=== PATIENT | female | born 1935 | race Caucasian/White ===

== ENCOUNTER 2017-06-10 07:10 | Inpatient (IN) | payer BC ==
[~2017-06-10] VITALS: Ht 157.5 cm; Wt 39.7 kg
--- NOTE | 2017-06-10 07:32 | PHYS DOC ---
Past Medical History Past Medical History: COPD Smoking: Cigarettes Alcohol Use: None Drug Use: None Adult General Chief Complaint Chief Complaint: WEAKNESS/GENERALIZED HPI HPI Patient is a 81 year old female presents to the emergency department by EMS. Patient comes from home stating that she was watching the basketball game last night when she fell asleep and woke up about 1 AM. She states she went to get out the chair and could not move her legs, or was unable to stand. Patient states that this morning she called EMS because she could use her legs. Review of Systems Review of Systems Constitutional: Denies fever or chills [] Eyes: Denies change in visual acuity, redness, or eye pain [] HENT: Denies nasal congestion or sore throat [] Respiratory: Denies cough or shortness of breath [] Cardiovascular: No additional information not addressed in HPI [] GI: Denies abdominal pain, nausea, vomiting, bloody stools or diarrhea [] : Denies dysuria or hematuria [] Musculoskeletal: Denies back pain. C/o inability to use legs earlier this AM Integument: Denies rash or skin lesions [] Neurologic: Denies headache, focal weakness or sensory changes [] Endocrine: Denies polyuria or polydipsia [] All other systems were reviewed and found to be within normal limits, except as documented in this note. Allergies Allergies Allergies Coded Allergies Type Severity Reaction Last Updated Verified Sulfa (Sulfonamide Antibiotics) Allergy Mild ITCHING 06/10/17 Yes Tetanus Vaccines and Toxoid Allergy Unknown 06/10/17 Yes Physical Exam Physical Exam Constitutional: Well developed, well nourished, no acute distress, non-toxic appearance. [] HENT: Normocephalic, atraumatic, bilateral external ears normal, oropharynx moist, no oral exudates, nose normal. [] Eyes: PERRLA, EOMI, conjunctiva normal, no discharge. [] Neck: Normal range of motion, no tenderness, supple, no stridor. [] Cardiovascular:Heart rate regular rhythm, no murmur [] Lungs & Thorax: Bilateral breath sounds clear to auscultation [] Skin: Warm, dry, no erythema, no rash. [] Back: No tenderness, no CVA tenderness. [] Extremities: No tenderness, no cyanosis, no clubbing, ROM intact, no edema. Patient with good sensation to bilateral legs, patient was able to move both legs without difficulty to perform the stroke scale Neurologic: Alert and oriented X 3, normal motor function, normal sensory function, no focal deficits noted. [] Psychologic: Affect normal, judgement normal, mood normal. [] Stroke scale 0 Current Patient Data Vital Signs Vital Signs Date Time Temp Pulse Resp B/P (MAP) Pulse Ox O2 Delivery O2 Flow Rate FiO2 06/10/17 08:30 84 18 98 06/10/17 07:15 98.3 195/93 (127) 98.0 98.3 Lab Values Laboratory Tests Test 06/10/17 07:30 06/10/17 08:40 White Blood Count 8.2 x10^3/uL (4.0-11.0) Red Blood Count 4.83 x10^6/uL (3.50-5.40) Hemoglobin 14.9 g/dL (12.0-15.5) Hematocrit 45.1 % (36.0-47.0) Mean Corpuscular Volume 94 fL (79-100) Mean Corpuscular Hemoglobin 31 pg (25-35) Mean Corpuscular Hemoglobin Concent 33 g/dL (31-37) Red Cell Distribution Width 13.5 % (11.5-14.5) Platelet Count 250 x10^3/uL (140-400) Neutrophils (%) (Auto) 65 % (31-73) Lymphocytes (%) (Auto) 23 % (24-48) L Monocytes (%) (Auto) 8 % (0-9) Eosinophils (%) (Auto) 3 % (0-3) Basophils (%) (Auto) 1 % (0-3) Neutrophils # (Auto) 5.4 x10^3uL (1.8-7.7) Lymphocytes # (Auto) 1.9 x10^3/uL (1.0-4.8) Monocytes # (Auto) 0.7 x10^3/uL (0.0-1.1) Eosinophils # (Auto) 0.3 x10^3/uL (0.0-0.7) Basophils # (Auto) 0.0 x10^3/uL (0.0-0.2) Sodium Level 139 mmol/L (136-145) Potassium Level 4.0 mmol/L (3.5-5.1) Chloride Level 101 mmol/L (98-107) Carbon Dioxide Level 30 mmol/L (21-32) Anion Gap 8 (6-14) Blood Urea Nitrogen 21 mg/dL (7-20) H Creatinine 0.8 mg/dL (0.6-1.0) Estimated GFR (Cockcroft-Gault) 69.0 BUN/Creatinine Ratio 26 (6-20) H Glucose Level 105 mg/dL (70-99) H Calcium Level 9.7 mg/dL (8.5-10.1) Total Bilirubin 0.4 mg/dL (0.2-1.0) Aspartate Amino Transferase (AST) 31 U/L (15-37) Alanine Aminotransferase (ALT) 25 U/L (14-59) Alkaline Phosphatase 86 U/L (46-116) Creatine Kinase 150 U/L (26-192) Creatine Kinase MB (Mass) 3.3 ng/mL (0.0-3.6) Creatine Kinase MB Relative Index 2.2 % (0-4) Troponin I Quantitative < 0.017 ng/mL (0.000-0.055) Total Protein 6.9 g/dL (6.4-8.2) Albumin 3.6 g/dL (3.4-5.0) Albumin/Globulin Ratio 1.1 (1.0-1.7) Urine Collection Type Unknown Urine Color Yellow Urine Clarity Clear Urine pH 6.5 Urine Specific [place] 1.015 Urine Protein Negative mg/dL (NEG-TRACE) Urine Glucose (UA) Negative mg/dL (NEG) Urine Ketones (Stick) Negative mg/dL (NEG) Urine Blood Negative (NEG) Urine Nitrite Positive (NEG) Urine Bilirubin Negative (NEG) Urine Urobilinogen Dipstick 0.2 mg/dL (0.2 mg/dL) Urine Leukocyte Esterase Moderate (NEG) Urine RBC 0 /HPF (0-2) Urine WBC >40 /HPF (0-4) Urine Squamous Epithelial Cells Few /LPF Urine Bacteria Many /HPF (0-FEW) Laboratory Tests 06/10/17 07:30 Laboratory Tests 06/10/17 07:30 EKG EKG EKG completed at 0730 with HR [address] Cesar Juarez[] Radiology/Procedures Radiology/Procedures [] Course & Med Decision Making Course & Med Decision Making Pertinent Labs and Imaging studies reviewed. (See chart for details) 0840 Patient was assisted to the bathroom with patient noted to lean to the right. Patient states while walking that her right leg is not working right. 0936 Spoke with Alber in regards to admission for this patient. She agrees with admission and has requested consult with neurology. Family is aware of admission. [] Dragon Disclaimer Dragon Disclaimer This electronic medical record was generated, in whole or in part, using a voice recognition dictation system. Departure Departure Impression: Primary Impression: Right leg weakness Disposition: ADMITTED INPATIENT Admitting Physician: Ryanne Campo DEANNA M APRN Jun 10, 2017 07:32
[2017-06-10 07:49] LABS: BASO % 1 % (0-3); EOS % 3 % (0-3); HEMATOCRIT 45.1 % (36.0-47.0); HEMOGLOBIN 14.9 g/dL (12.0-15.5); LYMPH # 1.9 x10^3/uL (1.0-4.8); LYMPH % 23 % (24-48); MEAN CORPUSCULAR HEMOGLOBIN 31 pg (25-35); MEAN CORPUSCULAR HGB CONC 33 g/dL (31-37); MEAN CORPUSCULAR VOLUME 94 fL (79-100); MONO % 8 % (0-9); NEUT % 65 % (31-73); PLATELET COUNT 250 x10^3/uL (140-400); RED BLOOD COUNT 4.83 x10^6/uL (3.50-5.40); RED CELL DISTRIBUTION WIDTH 13.5 % (11.5-14.5); WHITE BLOOD COUNT 8.2 x10^3/uL (4.0-11.0)
[2017-06-10 07:52] LABS: CALCIUM 9.7 mg/dL (8.5-10.1); CREATININE 0.8 mg/dL (0.6-1.0)
[2017-06-10 07:58] LABS: ALBUMIN 3.6 g/dL (3.4-5.0); ALBUMIN/GLOBULIN RATIO 1.1 (1.0-1.7); TOTAL BILIRUBIN 0.4 mg/dL (0.2-1.0); TOTAL PROTEIN 6.9 g/dL (6.4-8.2)
[2017-06-10 08:06] LABS: CKMB MASS 3.3 ng/mL (0.0-3.6)
--- NOTE | 2017-06-10 08:23 | RAD ---
CT of the head without contrast, 06/10/2017: History: Unable to walk There is moderate cerebral atrophy. There are moderate patchy lucencies in the deep white matter bilaterally compatible with chronic ischemic change. The ventricles are within normal limits in size. There is no shift of the midline structures. There is no evidence of acute intracranial hemorrhage or mass effect. The left maxillary sinus is opacified, presumably on an inflammatory basis. IMPRESSION: 1. Moderate cerebral atrophy. 2. Moderate bilateral deep white matter lucencies compatible with chronic ischemic change. 3. No acute intracranial abnormality is detected. MR scanning would be a more sensitive method of evaluation, if clinically indicated. PQRS Compliance Statement: One or more of the following individualized dose reduction techniques were utilized for this examination: 1. Automated exposure control 2. Adjustment of the mA and/or kV according to patient size 3. Use of iterative reconstruction technique
--- NOTE | 2017-06-10 08:45 | EKG ---
[facility] [address] [place] [address] Test Date: 2017-06-10 Test Time: 07:30:28 Pat Name: DARSHANA BILL Department: Room: Gender: F Drill Operator: : [id number] Requested By: RAQUEL XIE Order Number: [id number] Reading MD: Royal Wesley Measurements Intervals [place] Rate: 79 P: 95 [place]: 168 QRS: 42 QRSD: 76 T: 54 QT: 374 QTc: 430 Interpretive Statements SINUS RHYTHM LEFT ATRIAL ABNORMALITY NONSPECIFIC ST-T WAVE CHANGES. ABNORMAL ECG RI6.01 No previous ECG available for comparison Electronically Signed On 06-10-2017 16:05:44 RESIDENT CARE DIRECTOR by Royal Wesley
[2017-06-10 08:55] LABS: BILIRUBIN,URINE NEGATIVE (NEG); GLUCOSE,URINE NEGATIVE (NEG); NITRITE,URINE POSITIVE (NEG); PH,URINE 6.5; PROTEIN,URINE NEGATIVE (NEG-TRACE); UROBILINOGEN,URINE 0.2 mg/dL (0.2 mg/dL)
[2017-06-10 09:06] LABS: BACTERIA,URINE MANY /HPF (0-FEW); RBC,URINE 0 /HPF (0-2); SQUAMOUS EPITHELIAL CELL,UR FEW /LPF; WBC,URINE >40 /HPF (0-4)
--- NOTE | 2017-06-10 11:04 | RAD ---
MRI Brain without contrast History: Right leg weakness, unsteady gait, leaning to the left while walking Technique: Multiplanar, multisequential noncontrast MR imaging was performed of the brain. Contrast: None Comparison: None Findings: There is no evidence of recent infarct or cytotoxic edema. There is [id number] supratentorial atrophy greater of the parietal lobes. Ventricular size is within normal limits.There is no significant midline shift, intra-axial mass effect, or focal abnormal extra-axial fluid collection. There are multiple foci of T2 and FLAIR hyperintense signal abnormality of the supratentorial white matter in a bilateral distribution greatest of the frontal parietal lobes and periatrial white matter. 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 There is mild T2 and FLAIR hyperintense signal abnormality of the octavio. There is preservation of the major intracranial flow-voids at the skull base. There is very minimal patchy fluid of the right mastoid air cells.The cerebellar tonsils are normal in location. There is no significant abnormality of the pineal gland or pituitary gland. There is complete opacification of the left maxillary sinus with somewhat heterogeneous signal features. There is patchy mild ethmoid air cell mucosal thickening. There has been lens surgery bilaterally. There is preserved marrow signal of the clivus. Impression: 1. There is no evidence of recent infarct or intracranial mass effect. Overall moderate T2 and FLAIR hyperintense abnormality of the supratentorial white matter and minimally of the octavio is nonspecific although most commonly due to chronic microvascular ischemic disease in a patient this age. 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 2. There is complete opacification of the left maxillary sinus, heterogeneous signal features which may be due to inspissated debris/mucus. 3. There is supratentorial atrophy greater of the parietal lobes. Electronically signed by: Farhan Lackey MD (06/10/2017 11:01 AM) [id number]
[2017-06-10 11:13] VITALS: BP 190/94
[2017-06-10 13:38] VITALS: BP 190/94
[2017-06-10] MEDS ORDERED: MULT-697 PO (14:01)
[2017-06-10] MEDS ORDERED: LEVO25TA4 PO (14:01)
[2017-06-10] MEDS ORDERED: LOSA100T6 PO (14:01)
[2017-06-10] MEDS ORDERED: SIMV20TA3 PO (14:01)
[2017-06-10] MEDS ORDERED: ASPI81TA50 PO (14:01)
[2017-06-10 14:36] VITALS: BP 166/88
[2017-06-10] MEDS ORDERED: cefTRIAXone IV Push 1 GM VIAL. IVP SCH (16:30)
[2017-06-10] MEDS: ASPIRIN ENTERIC COATED 81 MG TABLET.DR. PO SCH (17:00)
[2017-06-10] MEDS: LEVOTHYROXINE 25 MCG TABLET. PO SCH (17:00)
[2017-06-10] MEDS: LOSARTAN POTASSIUM 50 MG TABLET. PO SCH (17:48)
[2017-06-10 19:00] VITALS: BP 188/80
--- NOTE | 2017-06-10 19:26 | PDOC2 ---
NEUROLOGY CONSULT Date of Admission Date of Admission DATE: 06/10/17 TIME: 19:12 Reason for Consult Reason for Consult: IMPRESSION: Right UE and LE weakness x 1 day. Gait instability. 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 Sinus disease. Smoking. No acute CVA found in MRI this time. RECOMMENDATIONS/PLAN: ASA 81 mg to 325 mg daily. Continue Zocor HS. Cervical spine MRI w/wo contrast. Carotid A US + Doppler. Treat medical diseases. Smoking cessation. OT/PT. Discussed ion detail with her sones at bedside. HISTORY OF THE PRESENT ILLNESS: 89-y-old female patient with above medical diseases has symptoms of right side arm and leg weakness found about 1:00 am after awake from sleep in sofa after watching TV. She felt right side heaviness and weakness but did not search medical attention. She then went to bed but her symptoms persistent next morning and she had difficulties walking on 06/10/17, so she was brought to the ER of [facility] for further evaluation. Her weakness was improved since got here, but she still felt heaviness in right side LE > UE. Brain MRI was performed but no acute CVA found. PAST MEDICAL HISTORY: Please see above. PAST SURGERY HISTORY: No major surgery recently. ALLERGY: Reviewed. MEDICATIONS: Refer to [facility] FAMILY HISTORY: Non contributory. SOCIAL HISTORY: Lives at home. Denies drinking and illicit drug use. She has longstanding history of smokes cigarettes for many years. REVIEW OF SYSTEMS: Constitutional: Mild malnutrition. Head: No recent traumatic brain or head injury. Skin: No edema, or rash. Ear: No infection. Eyes: No vision loss or color blindness. Nose: No bleeding or purulent discharges. Hearing: Mild hearing decrease. Neck: No injury. Breast: No history of cancer, masses,or discharges. Cardiac: No OK, arrhythmia. Pulmonary: COPD. GI: No GI ulcer, GI bleeding. Urinary/genital: UTI. Endocrinologic: No cousin face, craniofacial dysmorphism, polydactyly, goiter. Skeletomuscular: No muscular atrophy, deformity. Neurological: see HP. Psychiatric: Denies drug use/abuse. Otherwise, not [id number] review of systems. PHYSICAL EXAMINATION: General appearance is in subacute distress. HEENT: Normocephalic and nontraumatic. Eyes, nose, ears, and throat are unremarkable. Neck is supple. No lymphadenopathy. No crepitus. Cardiovascular: S1, S2, regular rate and rhythm. Pulmonary: Clear to auscultation bilaterally. Abdomen: Bowel sounds are positive. Abdomen is soft, nontender, and nondistended. Extremities: No rash, lesions, or edema. No restriction of range of motion NEUROLOGICAL EXAMINATION: Alert Oriented to time, place and person. PERRL. EOMI. CN: no focal findings. Muscle tone: within normal. Muscle strength: 5, right LE 4+ DTR: 2 Plantar reflex: Flexor response bilaterally Gait: She can walk with a walker, but she walks independently at home. Sensory exam: no abnormal findings. No acute cerebellar signs elicited. F-T-N test fine. Current Medications Current Medications Current Medications Aspirin (Ecotrin) 81 mg DAILY08 PO ; Start 06/10/17 at 17:00 Levothyroxine Sodium (Synthroid) 25 mcg DAILY07 PO ; Start 06/10/17 at 17:00 Simvastatin (Zocor) 20 mg QHS PO ; Start 06/10/17 at 21:00 Losartan Potassium (Cozaar) 100 mg DAILY PO Last administered on 06/10/17 17: 48; Start 06/10/17 at 17:00 Ceftriaxone Sodium 1 gm/ Dextrose 50 ml @ 100 mls/hr Q24H IV ; Start 06/10/17 at 16:15; Status UNV Ceftriaxone Sodium (Rocephin) 1 gm Q24H IVP Last administered on 06/10/17 17: 47; Start 06/10/17 at 16:30 Active Scripts Active Reported Centrum Adults Tablet (Multivitamin/Iron/Folic Acid) 1 Each Tablet 1 Each PO Aspir-Low (Aspirin) 81 Mg Tablet.dr 1 Tab PO DAILY Levothyroxine Sodium 25 Mcg Tablet 1 Tab PO DAILY Losartan Potassium 100 Mg Tablet 100 Mg PO DAILY Simvastatin 20 Mg Tablet 20 Mg PO DAILY Allergies Allergies: Coded Allergies: Sulfa (Sulfonamide Antibiotics) (Verified Allergy, Mild, ITCHING, 06/10/17 ) Tetanus Vaccines and Toxoid (Verified Allergy, Unknown, 06/10/17) Vitals VITALS Vital Signs Date Time Temp Pulse Resp B/P (MAP) Pulse Ox O2 Delivery O2 Flow Rate FiO2 06/10/17 17:48 88 166/88 06/10/17 14:36 98.0 16 92 Room Air 98.0 06/10/17 13:38 98.0 Labs Labs Laboratory Tests Test 06/10/17 07:30 06/10/17 08:40 White Blood Count 8.2 x10^3/uL (4.0-11.0) Red Blood Count 4.83 x10^6/uL (3.50-5.40) Hemoglobin 14.9 g/dL (12.0-15.5) Hematocrit 45.1 % (36.0-47.0) Mean Corpuscular Volume 94 fL (79-100) Mean Corpuscular Hemoglobin 31 pg (25-35) Mean Corpuscular Hemoglobin Concent 33 g/dL (31-37) Red Cell Distribution Width 13.5 % (11.5-14.5) Platelet Count 250 x10^3/uL (140-400) Neutrophils (%) (Auto) 65 % (31-73) Lymphocytes (%) (Auto) 23 % (24-48) Monocytes (%) (Auto) 8 % (0-9) Eosinophils (%) (Auto) 3 % (0-3) Basophils (%) (Auto) 1 % (0-3) Neutrophils # (Auto) 5.4 x10^3uL (1.8-7.7) Lymphocytes # (Auto) 1.9 x10^3/uL (1.0-4.8) Monocytes # (Auto) 0.7 x10^3/uL (0.0-1.1) Eosinophils # (Auto) 0.3 x10^3/uL (0.0-0.7) Basophils # (Auto) 0.0 x10^3/uL (0.0-0.2) Sodium Level 139 mmol/L (136-145) Potassium Level 4.0 mmol/L (3.5-5.1) Chloride Level 101 mmol/L (98-107) Carbon Dioxide Level 30 mmol/L (21-32) Anion Gap 8 (6-14) Blood Urea Nitrogen 21 mg/dL (7-20) Creatinine 0.8 mg/dL (0.6-1.0) Estimated GFR (Cockcroft-Gault) 69.0 BUN/Creatinine Ratio 26 (6-20) Glucose Level 105 mg/dL (70-99) Calcium Level 9.7 mg/dL (8.5-10.1) Total Bilirubin 0.4 mg/dL (0.2-1.0) Aspartate Amino Transf (AST/SGOT) 31 U/L (15-37) Alanine Aminotransferase (ALT/SGPT) 25 U/L (14-59) Alkaline Phosphatase 86 U/L (46-116) Creatine Kinase 150 U/L (26-192) Creatine Kinase MB (Mass) 3.3 ng/mL (0.0-3.6) Creatine Kinase MB Relative Index 2.2 % (0-4) Troponin I Quantitative < 0.017 ng/mL (0.000-0.055) Total Protein 6.9 g/dL (6.4-8.2) Albumin 3.6 g/dL (3.4-5.0) Albumin/Globulin Ratio 1.1 (1.0-1.7) Urine Collection Type Unknown Urine Color Yellow Urine Clarity Clear Urine pH 6.5 Urine Specific [place] 1.015 Urine Protein Negative mg/dL (NEG-TRACE) Urine Glucose (UA) Negative mg/dL (NEG) Urine Ketones (Stick) Negative mg/dL (NEG) Urine Blood Negative (NEG) Urine Nitrite Positive (NEG) Urine Bilirubin Negative (NEG) Urine Urobilinogen Dipstick 0.2 mg/dL (0.2 mg/dL) Urine Leukocyte Esterase Moderate (NEG) Urine RBC 0 /HPF (0-2) Urine WBC >40 /HPF (0-4) Urine Squamous Epithelial Cells Few /LPF Urine Bacteria Many /HPF (0-FEW) Laboratory Tests Test 06/10/17 07:30 06/10/17 08:40 White Blood Count 8.2 x10^3/uL (4.0-11.0) Red Blood Count 4.83 x10^6/uL (3.50-5.40) Hemoglobin 14.9 g/dL (12.0-15.5) Hematocrit 45.1 % (36.0-47.0) Mean Corpuscular Volume 94 fL (79-100) Mean Corpuscular Hemoglobin 31 pg (25-35) Mean Corpuscular Hemoglobin Concent 33 g/dL (31-37) Red Cell Distribution Width 13.5 % (11.5-14.5) Platelet Count 250 x10^3/uL (140-400) Neutrophils (%) (Auto) 65 % (31-73) Lymphocytes (%) (Auto) 23 % (24-48) Monocytes (%) (Auto) 8 % (0-9) Eosinophils (%) (Auto) 3 % (0-3) Basophils (%) (Auto) 1 % (0-3) Neutrophils # (Auto) 5.4 x10^3uL (1.8-7.7) Lymphocytes # (Auto) 1.9 x10^3/uL (1.0-4.8) Monocytes # (Auto) 0.7 x10^3/uL (0.0-1.1) Eosinophils # (Auto) 0.3 x10^3/uL (0.0-0.7) Basophils # (Auto) 0.0 x10^3/uL (0.0-0.2) Sodium Level 139 mmol/L (136-145) Potassium Level 4.0 mmol/L (3.5-5.1) Chloride Level 101 mmol/L (98-107) Carbon Dioxide Level 30 mmol/L (21-32) Anion Gap 8 (6-14) Blood Urea Nitrogen 21 mg/dL (7-20) Creatinine 0.8 mg/dL (0.6-1.0) Estimated GFR (Cockcroft-Gault) 69.0 BUN/Creatinine Ratio 26 (6-20) Glucose Level 105 mg/dL (70-99) Calcium Level 9.7 mg/dL (8.5-10.1) Total Bilirubin 0.4 mg/dL (0.2-1.0) Aspartate Amino Transf (AST/SGOT) 31 U/L (15-37) Alanine Aminotransferase (ALT/SGPT) 25 U/L (14-59) Alkaline Phosphatase 86 U/L (46-116) Creatine Kinase 150 U/L (26-192) Creatine Kinase MB (Mass) 3.3 ng/mL (0.0-3.6) Creatine Kinase MB Relative Index 2.2 % (0-4) Troponin I Quantitative < 0.017 ng/mL (0.000-0.055) Total Protein 6.9 g/dL (6.4-8.2) Albumin 3.6 g/dL (3.4-5.0) Albumin/Globulin Ratio 1.1 (1.0-1.7) Urine Collection Type Unknown Urine Color Yellow Urine Clarity Clear Urine pH 6.5 Urine Specific [place] 1.015 Urine Protein Negative mg/dL (NEG-TRACE) Urine Glucose (UA) Negative mg/dL (NEG) Urine Ketones (Stick) Negative mg/dL (NEG) Urine Blood Negative (NEG) Urine Nitrite Positive (NEG) Urine Bilirubin Negative (NEG) Urine Urobilinogen Dipstick 0.2 mg/dL (0.2 mg/dL) Urine Leukocyte Esterase Moderate (NEG) Urine RBC 0 /HPF (0-2) Urine WBC >40 /HPF (0-4) Urine Squamous Epithelial Cells Few /LPF Urine Bacteria Many /HPF (0-FEW) MARIAM MONTENEGRO MD Jun 10, 2017 19:26
[2017-06-10] MEDS ORDERED: SIMVASTATIN 20 MG TABLET PO SCH (21:00)
[2017-06-10 22:34] VITALS: BP 178/108
[2017-06-10] MEDS ORDERED: ALBUTEROL SULFATE 2.5 MG/3 ML NEBU. NEB PRN (22:45)
[2017-06-11 02:39] VITALS: BP 131/59
[2017-06-11 05:37] LABS: BASO % 1 % (0-3); EOS % 3 % (0-3); HEMATOCRIT 42.4 % (36.0-47.0); HEMOGLOBIN 14.2 g/dL (12.0-15.5); LYMPH # 1.7 x10^3/uL (1.0-4.8); LYMPH % 29 % (24-48); MEAN CORPUSCULAR HEMOGLOBIN 31 pg (25-35); MEAN CORPUSCULAR HGB CONC 34 g/dL (31-37); MEAN CORPUSCULAR VOLUME 92 fL (79-100); MONO % 12 % (0-9); NEUT % 56 % (31-73); PLATELET COUNT 225 x10^3/uL (140-400); RED CELL DISTRIBUTION WIDTH 13.5 % (11.5-14.5); WHITE BLOOD COUNT 5.9 x10^3/uL (4.0-11.0)
[2017-06-11 05:55] LABS: CALCIUM 9.2 mg/dL (8.5-10.1); CREATININE 0.6 mg/dL (0.6-1.0); GFR 96.2; POTASSIUM 3.5 mmol/L (3.5-5.1)
[2017-06-11 07:36] VITALS: BP 158/71
--- NOTE | 2017-06-11 08:17 | RAD ---
Carotid ultrasound, 06/10/2017: History: Right-sided weakness Duplex evaluation of the carotid arteries in the neck was performed including grayscale, color-flow and spectral Doppler analysis. There are mild to moderate scattered partially calcified atherosclerotic plaques in the common carotid arteries and at the carotid bifurcations. The peak systolic velocity in the right internal carotid artery is 69 cm per sec with an end-diastolic velocity of 23 cm/s. The peak systolic velocity in the left internal carotid artery is 95 cm per sec with an end-diastolic velocity of 18 cm/s. The Doppler findings suggest narrowing in the 0-50% diameter range. Antegrade flow is present in both vertebral arteries in the neck. IMPRESSION: Mild to moderate scattered atherosclerotic plaquing at both carotid bifurcations with underlying luminal narrowing in the 0-50% diameter range bilaterally. Note: Stenosis calculations for CTA, MRA and conventional angiography are based upon determination of the distal ICA diameter in accordance with the NASCET methodology. Stenosis calculations for Doppler studies are derived from validated velocity criteria which are known to correlate with NASCET methodology of determining stenosis.
--- NOTE | 2017-06-11 09:00 | PDOC ---
PROGRESS NOTES Subjective Subjective Patient states she feels fine, wants to go home. Objective Objective Vital Signs Date Time Temp Pulse Resp B/P (MAP) Pulse Ox O2 Delivery O2 Flow Rate FiO2 06/11/17 07:36 97.5 82 16 158/71 (100) 92 Room Air 97.5 06/10/17 13:38 98.0 Intake and Output 06/11/17 07:00 Intake Total 1040 ml Balance 1040 ml Intake Oral 1040 ml # Voids 1 Physical Exam Abdomen: Normal bowel sounds, Soft, No tenderness Heart: Regular rate Extremities: No edema General: Alert, Oriented X3, No acute distress Lungs: Other (BS decreased throughout but otherwise CTA.) Neuro: Normal speech, Other (mild R LE weakness with ambulation and mild LOB when turning) Assessment Assessment Problems Medical Problems: (1) Right leg weakness Status: Acute Plan Plan of Care 1. R LE weakness - much improved per patient's report but not back to baseline yet. MRI brain showed microvascular changes but no new infarct. Suspect TIA. Carotid dopplers with mild disease. Has been taking ASA 162mg daily, will increase to 325mg. Await PT and OT evaluation. Expect she will be able to return home today with roller walker and outpatient PT (will not be homebound). MRI C spine cancelled as patient without c/o numbness or tingling in arms and no neck pain. ( Patient had claustrophobia with MRI yesterday). 2. HTN - BP has been elevated here, usually fairly well controlled with her usual meds. Continue these and recheck on OV,. 3. hyperlipidemia - continue statin. 4. hypothyroidism - stable, continue her usual dose, lab ordered prior to OV scheduled for next month. 5. possible UTI - UA with >40 WBC's, culture pending. Will discharge on Cipro. 6. Tobaccoism - significant risk factor for CVA. Discussed. Patient states she will quit smoking. Already received flu shot this fall and UTD on pneumonia shots. Comment Review of Relevant I have reviewed the following items sav (where applicable) has been applied. Labs Laboratory Tests Test 06/10/17 07:30 06/10/17 08:40 06/11/17 03:50 White Blood Count 8.2 x10^3/uL (4.0-11.0) 5.9 x10^3/uL (4.0-11.0) Red Blood Count 4.83 x10^6/uL (3.50-5.40) 4.60 x10^6/uL (3.50-5.40) Hemoglobin 14.9 g/dL (12.0-15.5) 14.2 g/dL (12.0-15.5) Hematocrit 45.1 % (36.0-47.0) 42.4 % (36.0-47.0) Mean Corpuscular Volume 94 fL (79-100) 92 fL (79-100) Mean Corpuscular Hemoglobin 31 pg (25-35) 31 pg (25-35) Mean Corpuscular Hemoglobin Concent 33 g/dL (31-37) 34 g/dL (31-37) Red Cell Distribution Width 13.5 % (11.5-14.5) 13.5 % (11.5-14.5) Platelet Count 250 x10^3/uL (140-400) 225 x10^3/uL (140-400) Neutrophils (%) (Auto) 65 % (31-73) 56 % (31-73) Lymphocytes (%) (Auto) 23 % (24-48) 29 % (24-48) Monocytes (%) (Auto) 8 % (0-9) 12 % (0-9) Eosinophils (%) (Auto) 3 % (0-3) 3 % (0-3) Basophils (%) (Auto) 1 % (0-3) 1 % (0-3) Neutrophils # (Auto) 5.4 x10^3uL (1.8-7.7) 3.3 x10^3uL (1.8-7.7) Lymphocytes # (Auto) 1.9 x10^3/uL (1.0-4.8) 1.7 x10^3/uL (1.0-4.8) Monocytes # (Auto) 0.7 x10^3/uL (0.0-1.1) 0.7 x10^3/uL (0.0-1.1) Eosinophils # (Auto) 0.3 x10^3/uL (0.0-0.7) 0.2 x10^3/uL (0.0-0.7) Basophils # (Auto) 0.0 x10^3/uL (0.0-0.2) 0.0 x10^3/uL (0.0-0.2) Sodium Level 139 mmol/L (136-145) 140 mmol/L (136-145) Potassium Level 4.0 mmol/L (3.5-5.1) 3.5 mmol/L (3.5-5.1) Chloride Level 101 mmol/L (98-107) 103 mmol/L (98-107) Carbon Dioxide Level 30 mmol/L (21-32) 30 mmol/L (21-32) Anion Gap 8 (6-14) 7 (6-14) Blood Urea Nitrogen 21 mg/dL (7-20) 15 mg/dL (7-20) Creatinine 0.8 mg/dL (0.6-1.0) 0.6 mg/dL (0.6-1.0) Estimated GFR (Cockcroft-Gault) 69.0 96.2 BUN/Creatinine Ratio 26 (6-20) Glucose Level 105 mg/dL (70-99) 95 mg/dL (70-99) Calcium Level 9.7 mg/dL (8.5-10.1) 9.2 mg/dL (8.5-10.1) Total Bilirubin 0.4 mg/dL (0.2-1.0) Aspartate Amino Transf (AST/SGOT) 31 U/L (15-37) Alanine Aminotransferase (ALT/SGPT) 25 U/L (14-59) Alkaline Phosphatase 86 U/L (46-116) Creatine Kinase 150 U/L (26-192) Creatine Kinase MB (Mass) 3.3 ng/mL (0.0-3.6) Creatine Kinase MB Relative Index 2.2 % (0-4) Troponin I Quantitative < 0.017 ng/mL (0.000-0.055) Total Protein 6.9 g/dL (6.4-8.2) Albumin 3.6 g/dL (3.4-5.0) Albumin/Globulin Ratio 1.1 (1.0-1.7) Urine Collection Type Unknown Urine Color Yellow Urine Clarity Clear Urine pH 6.5 Urine Specific [place] 1.015 Urine Protein Negative mg/dL (NEG-TRACE) Urine Glucose (UA) Negative mg/dL (NEG) Urine Ketones (Stick) Negative mg/dL (NEG) Urine Blood Negative (NEG) Urine Nitrite Positive (NEG) Urine Bilirubin Negative (NEG) Urine Urobilinogen Dipstick 0.2 mg/dL (0.2 mg/dL) Urine Leukocyte Esterase Moderate (NEG) Urine RBC 0 /HPF (0-2) Urine WBC >40 /HPF (0-4) Urine Squamous Epithelial Cells Few /LPF Urine Bacteria Many /HPF (0-FEW) Laboratory Tests Test 06/11/17 03:50 White Blood Count 5.9 x10^3/uL (4.0-11.0) Red Blood Count 4.60 x10^6/uL (3.50-5.40) Hemoglobin 14.2 g/dL (12.0-15.5) Hematocrit 42.4 % (36.0-47.0) Mean Corpuscular Volume 92 fL (79-100) Mean Corpuscular Hemoglobin 31 pg (25-35) Mean Corpuscular Hemoglobin Concent 34 g/dL (31-37) Red Cell Distribution Width 13.5 % (11.5-14.5) Platelet Count 225 x10^3/uL (140-400) Neutrophils (%) (Auto) 56 % (31-73) Lymphocytes (%) (Auto) 29 % (24-48) Monocytes (%) (Auto) 12 % (0-9) Eosinophils (%) (Auto) 3 % (0-3) Basophils (%) (Auto) 1 % (0-3) Neutrophils # (Auto) 3.3 x10^3uL (1.8-7.7) Lymphocytes # (Auto) 1.7 x10^3/uL (1.0-4.8) Monocytes # (Auto) 0.7 x10^3/uL (0.0-1.1) Eosinophils # (Auto) 0.2 x10^3/uL (0.0-0.7) Basophils # (Auto) 0.0 x10^3/uL (0.0-0.2) Sodium Level 140 mmol/L (136-145) Potassium Level 3.5 mmol/L (3.5-5.1) Chloride Level 103 mmol/L (98-107) Carbon Dioxide Level 30 mmol/L (21-32) Anion Gap 7 (6-14) Blood Urea Nitrogen 15 mg/dL (7-20) Creatinine 0.6 mg/dL (0.6-1.0) Estimated GFR (Cockcroft-Gault) 96.2 Glucose Level 95 mg/dL (70-99) Calcium Level 9.2 mg/dL (8.5-10.1) Medications Current Medications Aspirin (Ecotrin) 81 mg DAILY08 PO ; Start 06/10/17 at 17:00 Levothyroxine Sodium (Synthroid) 25 mcg DAILY07 PO ; Start 06/10/17 at 17:00 Simvastatin (Zocor) 20 mg QHS PO Last administered on 06/10/17 21:46; Start 06/10/17 at 21:00 Losartan Potassium (Cozaar) 100 mg DAILY PO Last administered on 06/10/17 17: 48; Start 06/10/17 at 17:00 Ceftriaxone Sodium 1 gm/ Dextrose 50 ml @ 100 mls/hr Q24H IV ; Start 06/10/17 at 16:15; Status UNV Ceftriaxone Sodium (Rocephin) 1 gm Q24H IVP Last administered on 06/10/17 17: 47; Start 06/10/17 at 16:30 Albuterol Sulfate (Ventolin Neb Soln) 2.5 mg PRN Q6HRS PRN NEB SHORTNESS OF BREATH Last administered on 06/10/17 23:09; Start 06/10/17 at 22:45 Active Scripts Active Reported Centrum Adults Tablet (Multivitamin/Iron/Folic Acid) 1 Each Tablet 1 Each PO Aspir-Low (Aspirin) 81 Mg Tablet. 1 Tab PO DAILY Levothyroxine Sodium 25 Mcg Tablet 1 Tab PO DAILY Losartan Potassium 100 Mg Tablet 100 Mg PO DAILY Simvastatin 20 Mg Tablet 20 Mg PO DAILY Vitals/I & O Vital Sign - Last 24 Hours 06/10/17 06/10/17 06/10/17 06/10/17 09:30 10:00 11:13 13:14 Temp 97.8 97.8 Pulse 94 85 92 Resp 18 18 18 B/P (MAP) 190/94 (126) Pulse Ox 98 97 90 O2 Delivery Room Air Room Air 06/10/17 06/10/17 06/10/17 06/10/17 13:38 14:36 17:48 19:00 Temp 97.8 98.0 97.7 97.8 98.0 97.7 Pulse 92 88 88 84 Resp 16 18 B/P (MAP) 190/94 (126) 166/88 (114) 166/88 188/80 (116) Pulse Ox 90 92 94 O2 Delivery Room Air Room Air O2 Flow Rate 98.0 06/10/17 06/10/17 06/10/17 06/11/17 20:00 22:34 23:04 02:39 Temp 98.3 98.4 98.3 98.4 Pulse 87 82 Resp 21 16 B/P (MAP) 178/108 (131) 131/59 (83) Pulse Ox 93 96 94 O2 Delivery Room Air Room Air Room Air Room Air 06/11/17 07:36 Temp 97.5 97.5 Pulse 82 Resp 16 B/P (MAP) 158/71 (100) Pulse Ox 92 O2 Delivery Room Air Intake and Output 06/10/17 06/10/17 06/11/17 15:00 23:00 07:00 Intake Total 240 ml 800 ml Balance 240 ml 800 ml MENDEL FERNANDO MD Jun 11, 2017 09:00
[2017-06-11] MEDS ORDERED: ASPI325T8 PO (09:05)
[2017-06-11] MEDS ORDERED: CIPR250T30 PO (09:05)
[2017-06-11] MEDS: ASPIRIN ENTERIC COATED 81 MG TABLET.DR. PO SCH (09:27)
[2017-06-11] MEDS: LEVOTHYROXINE 25 MCG TABLET. PO SCH (09:27)
[2017-06-11] MEDS: LOSARTAN POTASSIUM 50 MG TABLET. PO SCH (09:28)
[2017-06-11 10:34] VITALS: BP 135/71
--- NOTE | 2017-06-11 17:00 | PDOC ---
PROGRESS NOTES Assessment Assessment Right UE and LE weakness x 1 day before admission. Gait instability x 1 day before admission. 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 Sinus disease. Smoking. No evidence of acute CVA this time. RECOMMENDATIONS/PLAN: ASA 81 mg to 325 mg daily. Continue Zocor HS. Treat medical diseases. Smoking cessation. Discussed again with all detail with her sones at bedside. FU with PCP. HISTORY OF THE PRESENT ILLNESS: 89-y-old female patient with above medical diseases has symptoms of right side arm and leg weakness found about 1:00 am after awake from sleep in sofa after watching TV. She felt right side heaviness and weakness but did not search medical attention. She then went to bed but her symptoms persistent next morning and she had difficulties walking on 06/10/17, so she was brought to the ER of [facility] for further evaluation. Her weakness was improved since got here, but she still felt heaviness in right side LE > UE. Brain MRI was performed but no acute CVA found. PAST MEDICAL HISTORY: Please see above. PAST SURGERY HISTORY: No major surgery recently. ALLERGY: Reviewed. MEDICATIONS: Refer to [facility] FAMILY HISTORY: Non contributory. SOCIAL HISTORY: Lives at home. Denies drinking and illicit drug use. She has longstanding history of smokes cigarettes for many years. REVIEW OF SYSTEMS: Constitutional: Mild malnutrition. Head: No recent traumatic brain or head injury. Skin: No edema, or rash. Ear: No infection. Eyes: No vision loss or color blindness. Nose: No bleeding or purulent discharges. Hearing: Mild hearing decrease. Neck: No injury. Breast: No history of cancer, masses,or discharges. Cardiac: No IA, arrhythmia. Pulmonary: COPD. GI: No GI ulcer, GI bleeding. Urinary/genital: UTI. Endocrinologic: No cousin face, craniofacial dysmorphism, polydactyly, goiter. Skeletomuscular: No muscular atrophy, deformity. Neurological: see HP. Psychiatric: Denies drug use/abuse. Otherwise, not [id number] review of systems. PHYSICAL EXAMINATION: General appearance is in subacute distress. HEENT: Normocephalic and nontraumatic. Eyes, nose, ears, and throat are unremarkable. Neck is supple. No lymphadenopathy. No crepitus. Cardiovascular: S1, S2, regular rate and rhythm. Pulmonary: Clear to auscultation bilaterally. Abdomen: Bowel sounds are positive. Abdomen is soft, nontender, and nondistended. Extremities: No rash, lesions, or edema. No restriction of range of motion NEUROLOGICAL EXAMINATION: Alert Oriented to time, place and person. PERRL. EOMI. CN: no focal findings. Muscle tone: within normal. Muscle strength: 5, right LE 4+ DTR: 2 Plantar reflex: Flexor response bilaterally Gait: She can walk with a walker, but she walks independently at home. Sensory exam: no abnormal findings. No acute cerebellar signs elicited. F-T-N test fine. Objective Objective Vital Signs Date Time Temp Pulse Resp B/P (MAP) Pulse Ox O2 Delivery O2 Flow Rate FiO2 06/11/17 10:34 98.3 82 16 135/71 (92) 94 Room Air 98.3 06/10/17 13:38 98.0 Intake and Output 06/11/17 07:00 Intake Total 1040 ml Balance 1040 ml Intake Oral 1040 ml # Voids 1 Vitals Signs Vitals VS - Last 72 Hours, by Label Date Time Temp Pulse Resp B/P (MAP) Pulse Ox O2 Delivery O2 Flow Rate FiO2 06/11/17 10:34 98.3 82 16 135/71 (92) 94 Room Air 98.3 06/11/17 09:28 79 125/75 06/11/17 07:36 97.5 82 16 158/71 (100) 92 Room Air 97.5 06/11/17 02:39 98.4 82 16 131/59 (83) 94 Room Air 98.4 06/10/17 23:04 96 Room Air 06/10/17 22:34 98.3 87 21 178/108 (131) 93 Room Air 98.3 06/10/17 20:00 Room Air 06/10/17 19:00 97.7 84 18 188/80 (116) 94 Room Air 97.7 06/10/17 17:48 88 166/88 06/10/17 14:36 98.0 88 16 166/88 (114) 92 Room Air 98.0 06/10/17 13:38 97.8 92 190/94 (126) 90 98.0 97.8 06/10/17 13:14 Room Air 06/10/17 11:13 97.8 92 18 190/94 (126) 90 Room Air 97.8 06/10/17 10:00 85 18 97 06/10/17 09:30 94 18 98 06/10/17 08:30 84 18 98 06/10/17 07:15 98.3 86 16 195/93 (127) 98.0 98.3 Laboratory Laboratory Laboratory Tests Test 06/11/17 03:50 White Blood Count 5.9 x10^3/uL (4.0-11.0) Red Blood Count 4.60 x10^6/uL (3.50-5.40) Hemoglobin 14.2 g/dL (12.0-15.5) Hematocrit 42.4 % (36.0-47.0) Mean Corpuscular Volume 92 fL (79-100) Mean Corpuscular Hemoglobin 31 pg (25-35) Mean Corpuscular Hemoglobin Concent 34 g/dL (31-37) Red Cell Distribution Width 13.5 % (11.5-14.5) Platelet Count 225 x10^3/uL (140-400) Neutrophils (%) (Auto) 56 % (31-73) Lymphocytes (%) (Auto) 29 % (24-48) Monocytes (%) (Auto) 12 % (0-9) Eosinophils (%) (Auto) 3 % (0-3) Basophils (%) (Auto) 1 % (0-3) Neutrophils # (Auto) 3.3 x10^3uL (1.8-7.7) Lymphocytes # (Auto) 1.7 x10^3/uL (1.0-4.8) Monocytes # (Auto) 0.7 x10^3/uL (0.0-1.1) Eosinophils # (Auto) 0.2 x10^3/uL (0.0-0.7) Basophils # (Auto) 0.0 x10^3/uL (0.0-0.2) Sodium Level 140 mmol/L (136-145) Potassium Level 3.5 mmol/L (3.5-5.1) Chloride Level 103 mmol/L (98-107) Carbon Dioxide Level 30 mmol/L (21-32) Anion Gap 7 (6-14) Blood Urea Nitrogen 15 mg/dL (7-20) Creatinine 0.6 mg/dL (0.6-1.0) Estimated GFR (Cockcroft-Gault) 96.2 Glucose Level 95 mg/dL (70-99) Calcium Level 9.2 mg/dL (8.5-10.1) Vitamin B12 Level 831 pg/mL (247-911) 25-Hydroxy Vitamin D Total 35.7 ng/mL (30-100) Medication Medications Current Medications Albuterol Sulfate (Ventolin Neb Soln) 2.5 mg PRN Q6HRS PRN NEB SHORTNESS OF BREATH Last administered on 06/10/17 23:09; Start 06/10/17 at 22:45 Aspirin (Ecotrin) 81 mg DAILY08 PO Last administered on 06/11/17 09:27; Start 06/10/17 at 17:00 Levothyroxine Sodium (Synthroid) 25 mcg DAILY07 PO Last administered on 09:27; Start 06/10/17 at 17:00 Losartan Potassium (Cozaar) 100 mg DAILY PO Last administered on 06/11/17 09: 28; Start 06/10/17 at 17:00 Simvastatin (Zocor) 20 mg QHS PO Last administered on 06/10/17 21:46; Start 06/10/17 at 21:00 Comment Review of Relevant I have reviewed the following items sav (where applicable) has been applied. MARIAM MONTENEGRO MD Jun 11, 2017 17:00
--- NOTE | 2017-06-14 08:55 | SSS ---
ADMIT DATE: 06/11/2017 CHIEF COMPLAINT: Right-sided weakness. HISTORY OF PRESENT ILLNESS: The patient is an 81-year-old female who presented to the Emergency Room with the above complaint. She reported that she fell asleep on the couch on the evening prior to admission and when she woke up in the middle of the night, she felt that her right leg was very weak. She noticed some weakness in her right arm, but it was not as significant. She apparently went back to sleep, but when she woke up at 6:00 a.m., the weakness with still present. She then called family members and was brought to the Emergency Room. Initial evaluation there showed that the patient was able to move all her extremities, but when she walked, she leaned to the right and her leg did appear to be somewhat weak. She was therefore admitted for further treatment. PAST MEDICAL HISTORY: Hypertension, hyperlipidemia, hypothyroidism, glucose intolerance, osteopenia, tobaccoism. PAST SURGICAL HISTORY: Cholecystectomy, appendectomy, partial hysterectomy. ALLERGIES: THE PATIENT IS ALLERGIC TO SULFA, TETANUS VACCINES, AND TETANUS TOXOID. HOME MEDICATIONS: Losartan 100 mg daily, levothyroxine 25 mcg daily, simvastatin 10 mg at bedtime, Combivent p.r.n., calcium daily, aspirin 81 mg daily. The patient states she was actually taking 2 of these making 162 mg daily. FAMILY HISTORY: Noncontributory. SOCIAL HISTORY: The patient is . She lives by herself. She continues to smoke cigarettes; she states 2-3 cigarettes daily. She does not drink alcohol to excess. REVIEW OF SYSTEMS: The patient has not had fever or chills. She has not had a cough or shortness of breath. She has not had chest pain or palpitations. She denies abdominal pain, nausea or vomiting. She denies other episodes of weakness. She denies any numbness or tingling in her arms and has not had pain in her neck. PHYSICAL EXAMINATION: GENERAL: The patient is alert and oriented x 3, sitting in a chair, in no acute distress. HEENT: PERRL, EOMI, sclerae clear. Oropharynx: Mucous membranes moist. NECK: Supple, without lymphadenopathy. CHEST: Breath sounds mildly decreased throughout, but otherwise clear to auscultation. CARDIOVASCULAR: Regular rhythm without murmur. ABDOMEN: Soft, nontender, normoactive bowel sounds are present. EXTREMITIES: Bilateral lower extremities are without edema. NEUROLOGIC: The patient's speech is normal and cranial nerves 2-12 are grossly intact. She does show mild right lower extremity weakness with ambulation and mild loss of balance when turning. HOSPITAL COURSE: The patient was admitted and placed on telemetry where she remained in sinus rhythm. Her vital signs have been stable overnight and she reports that the weakness in her leg is continuing to improve. Dr. Jain saw the patient in consultation and ordered carotid Dopplers, which showed mild stenosis in the 0-50% range bilaterally. ASSESSMENT AND PLAN: 1. Right lower extremity weakness. This is much improved per the patient's report, but is not back to baseline yet. An MRI of the brain showed chronic microvascular changes, but no acute infarct. Carotid Dopplers showed mild disease only, suspect transient ischemic attack. The patient has been taking aspirin 162 mg daily. We will increase this to 325 mg daily. Await Physical and Occupational Therapy evaluation. Expect that she will be able to return home today with a roller walker and outpatient physical therapy. Dr. Jain has seen the patient in consultation. She ordered an MRI of the cervical spine due to the patient's complaint of some weakness in her right arm; however, the patient has significant claustrophobia with the MRI and requests that it not be done unless absolutely necessary. Since she has not had any pain in her neck or any numbness or tingling in her arms, we will defer this at this time. 2. Hypertension. The patient's blood pressure has been elevated here. It is usually fairly well controlled with her usual medications. We will continue these and recheck on office visit. 3. Hyperlipidemia. This has been well controlled. Continue statin. 4. Hypothyroidism. This has been stable. We will continue her usual dose and recheck her lab before her scheduled office visit next month. 5. Possible urinary tract infection. The patient's urine had greater than 40 wbc's at admission with few squamous epithelial cells. Urine culture is pending. She received one dose of Rocephin. We will discharge her on Cipro and follow this as an outpatient. 6. Tobaccoism. This is a significant risk factor for cerebrovascular accident. This was discussed with the patient. She states she will quit smoking. She has already received her flu shot this fall and she is up to date on her pneumonia shots. FINAL DIAGNOSES: 1. Transient ischemic attack. 2. Hypertension. 3. Hyperlipidemia. 4. Hypothyroidism. 5. Urinary tract infection. 6. Tobaccoism. DISCHARGE MEDICATIONS: Remain the same as at admission except that aspirin is increased to 325 mg daily. The patient is also prescribed Cipro 250 mg 1 p.o. b.i.d. x 5 days. FOLLOWUP: With Dr. Campo on 07/02/2017 as already scheduled. MENDEL CAMPO MD DR: JAVON/janeth JOB#: [id number] / [id number] SRINIVASAN
== END 2017-06-11 17:19 | disposition home or self-care (01) | DRG 69 ==
LOC: ER 07:10 → 5 SOUTH 08:46
PROVIDERS: ADMIT Family Medicine; ATTEND Family Medicine
DX: G45.9 Transient cerebral ischemic attack, unspecified (principal); J44.9 Chronic obstructive pulmonary disease, unspecified; N39.0 Urinary tract infection, site not specified; I10 Essential (primary) hypertension; M85.80 Other specified disorders of bone density and structure, unspecified site; F40.240 Claustrophobia; F17.210 Nicotine dependence, cigarettes, uncomplicated; E78.5 Hyperlipidemia, unspecified; E74.39 Other disorders of intestinal carbohydrate absorption; E03.9 Hypothyroidism, unspecified; Z79.82 Long term (current) use of aspirin; Z90.710 Acquired absence of both cervix and uterus; Z90.49 Acquired absence of other specified parts of digestive tract; Z88.2 Allergy status to sulfonamides; Z88.7 Allergy status to serum and vaccine
CPT/HCPCS: 36415; 70450; 70551; 80048; 80053; 81001; 82306; 82553; 82607; 84484; 85025; 87086; 87186; 93005; 93880; 94640; J0696; J7613; 99285-25

== ENCOUNTER → 2020-04-24 | Outpatient (CLI) | payer BC ==
[~2020-04-24] MED LIST: ASPI325T8 PO; ASPI81TA50 PO; CIPR250T30 PO; LEVO25TA4 PO; LOSA100T14 PO; MULT-697 PO; SIMV20TA18 PO
--- NOTE | 2020-04-24 12:40 | RAD ---
EXAM: CHEST PA LATERAL INDICATION: Reason: COPD (CHRONIC OBSTRUCTIVE PULMONARY DISEASE) / Spl. Instructions: / History: . TECHNIQUE: PA and lateral views COMPARISON: None FINDINGS: The heart size is normal. The great vessels appear unremarkable. There is no hilar or mediastinal mass. The lungs are hyperinflated in a pattern consistent with underlying COPD. No lung nodules or masses are identified.. There is no pleural effusion or pneumothorax. There are no significant osseous abnormalities. IMPRESSION: Evidence of COPD with no superimposed active cardiopulmonary disease. Electronically signed by: Brandon Hernandez MD (04/24/2020 12:37 PM) [id number]
== END | disposition home or self-care (01) ==
LOC: RAD 09:09
PROVIDERS: ATTEND Internal Medicine Pulmonary Disease
DX: J44.9 Chronic obstructive pulmonary disease, unspecified (principal)
CPT/HCPCS: 71046

== ENCOUNTER → 2020-05-11 | Outpatient (CLI) | payer BC ==
--- NOTE | 2020-05-11 08:47 | RAD ---
Examination: CT chest without contrast HISTORY: History of dyspnea COMPARISON: None available Technique: Axial CT images of the chest were performed without contrast. Coronal and sagittal reformats are performed Exposure: One or more of the following individualized dose reduction techniques were utilized for this examination: 1. Automated exposure control 2. Adjustment of the mA and/or kV according to patient size 3. Use of iterative reconstruction technique FINDINGS: The central airways are patent. The heart size grossly appears unremarkable. Coronary artery calcifications identified. The ascending aorta measures 3.5 cm in transverse dimension. Moderate aortic atherosclerosis. No radiologically significant mediastinal lymphadenopathy. Severe bilateral lung emphysematous changes. The visualized liver demonstrates multiple cystic structures in the liver with the largest measuring 2.1 cm likely cysts. Moderate degenerative changes thoracic spine. IMPRESSION: 1. Severe bilateral lung emphysematous changes. 2. Coronary artery calcifications. 3. Cystic structures identified in the liver with the largest measuring 2.1 cm, difficult to characterize probably cysts. Electronically signed by: Silver Bernabe MD (05/11/2020 8:45 AM) [id number]
== END ==
LOC: CT 07:40
PROVIDERS: ATTEND Internal Medicine Pulmonary Disease
DX: I25.10 Atherosclerotic heart disease of native coronary artery without angina pectoris (principal); I70.0 Atherosclerosis of aorta; J43.9 Emphysema, unspecified; K76.89 Other specified diseases of liver; M47.814 Spondylosis without myelopathy or radiculopathy, thoracic region
CPT/HCPCS: 71250